=== PATIENT | female | born 1995 | race Caucasian/White ===

== ENCOUNTER 2016-11-30 22:56 | Emergency (ER) | payer SELFPAY ==
[~2016-11-30] VITALS: Ht 160 cm; Wt 68.0 kg
[2016-11-30 23:22] VITALS: BP 138/83
--- NOTE | 2016-12-01 00:23 | ED GENERAL ADULT ---
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 yes : No Patient currently breastfeeds: No HPI: Patient is a 21-year-old female presents for evaluation of blood exposure. 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 This occurred at approximately 9:30 PM. Patient denies any open wounds or sores in her mouth. Patient is up-to-date on her hepatitis B vaccination. Patient does not know the medical history of the source patient and whether the source patient has any known communicable diseases. Patient is otherwise completely free. Pain is 0 out of 10. Patient denies fevers, chills, nausea, vomiting. (ISABELL SANTOS) Reconcile Medications No Known Home Medications (JAMILA MANLEY,SHARITA) Past History Travel History Traveled to [place] past 21 day No Medical History Any Pertinent Medical History? none Neurological: NONE EENT: NONE Cardiovascular: NONE Respiratory: NONE Gastrointestinal: NONE Hepatic: NONE Renal: NONE Musculoskeletal: NONE Psychiatric: NONE Endocrine: NONE Blood Disorders: NONE Cancer(s): NONE Surgical History Surgical History: non-contributory Psychosocial History What is your primary language Maltese Tobacco Use: Never used Family History Hx Contributory? No (ISABELL SANTOS) Review of Systems Review of Systems Constitutional: Denies: chills, fever. EENTM: Reports: no symptoms. Respiratory: Denies: short of breath. GI: Denies: abdominal pain, nausea, vomiting. Musculoskeletal: Reports: no symptoms. Neurological/Psychological: Reports: no symptoms. Hematologic/Endocrine: Reports: no symptoms. Immunologic/Allergic: Reports: see HPI. (ISABELL SANTOS) Physical Exam Physical Exam General Appearance: well developed/nourished, alert, awake Head: atraumatic, normal appearance Eyes: Bilateral: normal appearance. Ears, Nose, Throat: normal pharynx, normal ENT inspection, no open sores or wounds in the oral cavity Neck: normal inspection, supple, full range of motion Respiratory: no respiratory distress Back: normal range of motion Neurologic/Psych: awake, alert, oriented x 3 Skin: intact, normal color, warm/dry Core Measures ACS in differential dx? No CVA/TIA Diagnosis: No Severe Sepsis Present: No Septic Shock Present: No (ISABELL SANTOS) Progress Differential Diagnoses I considered the following diagnoses in my evaluation of the patient: blood exposure, communicable disease exposure Plan of Care: Orders Procedure Date/time Status HIV EXPOSURE/NEEDLESTICK 12/01 18 Active HUMAN BETA HCG SCREEN 12/01 18 Active HEPT C ANTIBODY 12/01 18 Active HEPT B SURFACE ANTIBODY 12/01 18 Active GAMMA GLUTAMYL TRANSFERASE 12/01 18 Active COMPREHENSIVE METABOLIC PANEL 12/01 18 Active CBC WITHOUT DIFFERENTIAL 12/01 18 Complete TRNSFRASE ASPART AMINO 12/01 18 Active TRNSFRAS ALANINE AMINO 12/01 18 Active Laboratory Tests 12/01/16 0030: Anion Gap 10, Estimated GFR > 60, BUN/Creatinine Ratio 16.3, Glucose 81, Calcium 9.5, Total Bilirubin 0.4, GGT 13, AST 26, ALT 26, Alkaline Phosphatase 65, Total Protein 7.5, Albumin 4.4, Globulin 3.1, Albumin/Globulin Ratio 1.4, Total Beta HCG NEGATIVE, CBC w Diff NO MAN DIFF REQ, RBC 4.29, MCV 85.6, MCH 29.0, RDW 14.7 H, MPV 7.9, Gran % 52.4, Lymphocytes % 37.2, Monocytes % 8.9, Eosinophils % 1.1 , Basophils % 0.4, Absolute Granulocytes 3.8, Absolute Lymphocytes 2.7, Absolute Monocytes 0.6, Absolute Eosinophils 0.1, Absolute Basophils 0, PUBS MCHC 33.9, Hep Bs Antibody Pending, Hepatitis C Antibody Pending, HIV 1&2 Antibody NONREACTIVE Appears low risk exposure. Discussed HIV prophylaxis with patient. Patient declined. Baseline blood work obtained. Patient to follow up with occupational medicine. (ISABELL SANTOS) Initial ED EKG: none (ISABELL SANTOS) Departure Departure Time of Disposition: 20 Disposition: HOME OR SELF CARE Condition: Stable Clinical Impression Primary Impression: Exposure to blood or body fluid Referrals: UNKNOWN (PCP/Family) Additional Instructions: Follow-up with occupational medicine for further evaluation. Call Wednesday morning for appointment. Departure Forms: Customer Survey Employee Industrial Accident General Discharge Information (ISABELL SANTOS) Departure Prescriptions: Current Visit Scripts No Known Home Medications PA/REGULATORY AFFAIRS STRATEGY SPECIALIST Co-Sign Statement Statement: ED Attending supervision documentation- [X] I saw and evaluated the patient. I have also reviewed all the pertinent lab results and diagnostic results. I agree with the findings and the plan of care as documented in the PA's/REGULATORY AFFAIRS STRATEGY SPECIALIST's documentation. [X] I have reviewed the ED Record and agree with the PA's/REGULATORY AFFAIRS STRATEGY SPECIALIST's documentation. [] Additions or exceptions (if any) to the PAs/REGULATORY AFFAIRS STRATEGY SPECIALIST's note and plan are summarized below: [] (JAMILA MANLEY,SHARITA) Critical Care Note Critical Care Note Critical Care Time: non-applicable (ISABELL SANTOS)
[2016-12-01 00:55] LABS: ABSOLUTE BASOPHIL COUNT 0 /CUMM (0.0-0.2); ABSOLUTE EOSINOPHIL COUNT 0.1 /CUMM (0.0-0.7); ABSOLUTE GRANULOCYTE CT 3.8 /CUMM (1.4-6.5); ABSOLUTE LYMPH COUNT 2.7 /CUMM (1.2-3.4); ABSOLUTE MONOCYTE COUNT 0.6 /CUMM (0.10-0.60); BASOPHIL % 0.4 % (0.0-2.0); EOSINOPHIL % 1.1 % (0-5); GRANULOCYTE % 52.4 % (42.2-75.2); HEMATOCRIT 36.7 % (37-47); MEAN CORPUSCULAR HGB CONC 33.9 G/DL (33.0-37.0); MEAN CORPUSCULAR VOLUME 85.6 FL (81.0-99.0); MEAN PLATELET VOLUME 7.9 FL (7.4-10.4); PLATELET COUNT 340 /CUMM (130-400); RBC DISTRIBUTION WIDTH 14.7 % (11.5-14.5); RED BLOOD CELL CT 4.29 /CUMM (4.20-5.40); WHITE BLOOD CELL COUNT 7.2 /CUMM (4.8-10.8)
== END 2016-12-01 01:38 ==
LOC: ERH 22:56
PROVIDERS: Physician Assistant
DX: Z77.21 Contact with and (suspected) exposure to potentially hazardous body fluids (principal)
CPT/HCPCS: 86803; 87389